=== PATIENT | female | born 1935 | race Caucasian/White ===

== ENCOUNTER 2017-03-10 12:51 | Inpatient (IN) | payer MEDICARE ==
[2017-03-10] MEDS ORDERED: Albuterol/Ipratropium 3.0-0.5 MG/3 ML Neb Soln NEB ONE (13:19)
[2017-03-10] MEDS ORDERED: methylPREDNISolone Sodium Succinate 125 MG/2 ML SDV IVPUSH ONE (13:19)
[2017-03-10] MEDS ORDERED: Sodium Chloride 0.9% 1,000 ML IV SCH (13:30)
--- NOTE | 2017-03-10 13:34 | EDM.PDOC ---
ED HPI GENERAL MEDICAL PROBLEM - General Chief Complaint: Respiratory Problem Stated Complaint: SOB Time Seen by Provider: 03/10/17 13:33 Source of Information: Reports: Patient - History of Present Illness INITIAL COMMENTS - FREE TEXT/NARRATIVE: HISTORY AND PHYSICAL: History of present illness: [Patient presents with shortness breath and hypoxic on initial exam 85% on room air she has significant smoking history in the remote past but has not smoked in 20 years no fever nausea vomiting chills sweats no chest pain headache dizziness or palpitation no bowel or urine symptoms ] Review of systems: As per history of present illness and below otherwise all systems reviewed and negative. Past medical history: As per history of present illness and as reviewed below otherwise noncontributory. Surgical history: As per history of present illness and as reviewed below otherwise noncontributory. Social history: No reported history of drug or alcohol abuse. Family history: As per history of present illness and as reviewed below otherwise noncontributory. Physical exam: HEENT: Atraumatic, normocephalic, pupils reactive, negative for conjunctival pallor or scleral icterus, mucous membranes moist, throat clear, neck supple, nontender, trachea midline. Lungs: Decreased breath sounds bilaterally, breath sounds equal bilaterally, chest nontender. Heart: S1S2, regular, negative for clicks, rubs, or JVD. Abdomen: Soft, nondistended, nontender. Negative for masses or hepatosplenomegaly. Negative for costovertebral tenderness. Pelvis: Stable nontender. Genitourinary: Deferred. Rectal: Deferred. Extremities: Atraumatic, negative for cords or calf pain. Neurovascular unremarkable. Neuro: Awake, alert, oriented. Cranial nerves II through XII unremarkable. Cerebellum unremarkable. Motor and sensory unremarkable throughout. Exam nonfocal. Diagnostics: [Lab as below EKG Chest 1 view Influenza ] Therapeutics: [DuoNeb Solu-Medrol Normal saline 1 25 mL per hour] Impression: [Hypoxia 80% room air] COPD exacerbation Definitive disposition and diagnosis as appropriate pending reevaluation and review of above. ED ROS GENERAL - Review of Systems Review Of Systems: ROS reveals no pertinent complaints other than HPI. ED EXAM, GENERAL - Physical Exam Exam: See Below Course - Vital Signs Last Recorded V/S: Last Vital Signs Temp 98.8 F 03/10/17 13:04 Pulse 96 03/10/17 13:04 Resp 22 H 03/10/17 13:04 BP 161/76 H 03/10/17 13:04 Pulse Ox 85 L 03/10/17 13:04 - Orders/Labs/Meds Orders: Active Orders 24 hr Category Date Time Status EKG Documentation Completion [RC] STAT Care 03/10/17 13:24 Active RT Aerosol Therapy [RC] ASDIRECTED Care 03/10/17 13:19 Active Chest 1V Frontal [CR] Stat Exams 03/10/17 13:19 Taken UA W/MICROSCOPIC [URIN] Stat Lab 03/10/17 14:25 Received Sodium Chloride 0.9% [Normal Saline] 1,000 ml Med 03/10/17 13:30 Active IV STAT Medication Orders Sodium Chloride (Normal Saline) 1,000 mls @ 125 mls/hr IV STAT ELAINE Last Admin: 03/10/17 13:35 Dose: 125 mls/hr Labs: Laboratory Tests 03/10/17 03/10/17 03/10/17 Range/Units 13:33 13:33 13:33 WBC 8.43 (4.0-11.0) K/uL RBC 4.39 (4.30-5.90) M/uL Hgb 14.8 (12.0-16.0) g/dL Hct 44.1 (36.0-46.0) % MCV 100.5 H (80.0-98.0) fL MCH 33.7 H (27.0-32.0) pg MCHC 33.6 (31.0-37.0) g/dL RDW Std Deviation 54.1 (28.0-62.0) fl RDW Coeff of Christina 15 (11.0-15.0) % Plt Count 345 (150-400) K/uL MPV 11.70 (7.40-12.00) fL Neut % (Auto) 59.6 (48.0-80.0) % Lymph % (Auto) 23.0 (16.0-40.0) % [place] % (Auto) 10.2 (0.0-15.0) % Eos % (Auto) 5.9 (0.0-7.0) % Baso % (Auto) 1.3 (0.0-1.5) % Neut # (Auto) 5.0 (1.4-5.7) K/uL Lymph # (Auto) 1.9 (0.6-2.4) K/uL [place] # (Auto) 0.9 H (0.0-0.8) K/uL Eos # (Auto) 0.5 (0.0-0.7) K/uL Baso # (Auto) 0.1 (0.0-0.1) K/uL Nucleated RBC % 0.0 /100WBC Nucleated RBCs # 0 K/uL INR 0.96 (0.86-1.11) Sodium 141 (136-146) mmol/L Potassium 4.0 (3.5-5.1) mmol/L Chloride 102 (98-110) mmol/L Carbon Dioxide 29 (21-31) mmol/L BUN 12 (6.0-23.0) mg/dL Creatinine 0.7 (0.6-1.5) mg/dL Est Cr Clr Drug Dosing TNP Estimated GFR (MDRD) > 60.0 ml/min Glucose 149 H (60-110) mg/dL Calcium 9.5 (8.8-10.8) mg/dL Total Bilirubin 0.5 (0.1-1.5) mg/dL AST 19 (5-40) IU/L ALT 15 (8-54) IU/L Alkaline Phosphatase 78 (40-150) Creatine Kinase 68 (9-236) IU/L CK-MB (CK-2) 1.8 (0-6.6) ng/ml Troponin I < 0.10 (0.0-0.29) NG/ML B-Natriuretic Peptide (<100) PG/ML Total Protein 8.0 (6.0-8.0) g/dL Albumin 4.2 (3.4-4.8) g/dL Globulin 3.8 H (2.0-3.5) g/dL Albumin/Globulin Ratio 1.1 L (1.3-2.8) 03/10/ Range/Units 13:33 WBC (4.0-11.0) K/uL RBC (4.30-5.90) M/uL Hgb (12.0-16.0) g/dL Hct (36.0-46.0) % MCV (80.0-98.0) fL MCH (27.0-32.0) pg MCHC (31.0-37.0) g/dL RDW Std Deviation (28.0-62.0) fl RDW Coeff of Christina (11.0-15.0) % Plt Count (150-400) K/uL MPV (7.40-12.00) fL Neut % (Auto) (48.0-80.0) % Lymph % (Auto) (16.0-40.0) % [place] % (Auto) (0.0-15.0) % Eos % (Auto) (0.0-7.0) % Baso % (Auto) (0.0-1.5) % Neut # (Auto) (1.4-5.7) K/uL Lymph # (Auto) (0.6-2.4) K/uL [place] # (Auto) (0.0-0.8) K/uL Eos # (Auto) (0.0-0.7) K/uL Baso # (Auto) (0.0-0.1) K/uL Nucleated RBC % /100WBC Nucleated RBCs # K/uL INR (0.86-1.11) Sodium (136-146) mmol/L Potassium (3.5-5.1) mmol/L Chloride (98-110) mmol/L Carbon Dioxide (21-31) mmol/L BUN (6.0-23.0) mg/dL Creatinine (0.6-1.5) mg/dL Est Cr Clr Drug Dosing Estimated GFR (MDRD) ml/min Glucose (60-110) mg/dL Calcium (8.8-10.8) mg/dL Total Bilirubin (0.1-1.5) mg/dL AST (5-40) IU/L ALT (8-54) IU/L Alkaline Phosphatase (40-150) Creatine Kinase (9-236) IU/L CK-MB (CK-2) (0-6.6) ng/ml Troponin I (0.0-0.29) NG/ML B-Natriuretic Peptide 121 H (<100) PG/ML Total Protein (6.0-8.0) g/dL Albumin (3.4-4.8) g/dL Globulin (2.0-3.5) g/dL Albumin/Globulin Ratio (1.3-2.8) Meds: Medications Generic Name Dose Route Start Last Admin Trade Name Katharina PRN Reason Stop Dose Admin Sodium Chloride 1,000 mls @ 125 mls/hr 03/10/17 13:30 03/10/17 13:35 Normal Saline IV 125 mls/hr STAT ELAINE Administration Discontinued Medications Generic Name Dose Route Start Last Admin Trade Name Katharina PRN Reason Stop Dose Admin Albuterol/Ipratropium 3 ml 03/10/17 13:19 03/10/17 13:33 Duoneb 3.0-0.5 Mg/3 Ml NEB 03/10/17 13:20 3 ml ONETIME ONE Administration Methylprednisolone Sodium Succinate 125 mg 03/10/17 13:19 03/10/17 13:36 Solu-Medrol IVPUSH 03/10/17 13:20 125 mg ONETIME ONE Administration Departure - Departure Time of Disposition: 14:50 Disposition: Refer to Observation Condition: Poor Clinical Impression: Hypoxia - Discharge Information Referrals: PCP,None [Primary Care Provider] - Forms: ED Department Discharge - My Orders Last 24 Hours: My Active Orders 03/10/17 13:19 RT Aerosol Therapy [RC] ASDIRECTED Chest 1V Frontal [CR] Stat 03/10/17 13:24 EKG Documentation Completion [RC] STAT 03/10/17 13:30 Sodium Chloride 0.9% [Normal Saline] 1,000 ml IV STAT 03/10/17 14:25 UA W/MICROSCOPIC [URIN] Stat - Assessment/Plan Last 24 Hours: My Active Orders 03/10/17 13:19 RT Aerosol Therapy [RC] ASDIRECTED Chest 1V Frontal [CR] Stat 03/10/17 13:24 EKG Documentation Completion [RC] STAT 03/10/17 13:30 Sodium Chloride 0.9% [Normal Saline] 1,000 ml IV STAT 03/10/17 14:25 UA W/MICROSCOPIC [URIN] Stat
[2017-03-10 14:12] LABS: CHLORIDE,CL 102 mmol/L (98-110); SODIUM,NA 141 mmol/L (136-146)
[2017-03-10] MEDS ORDERED: Albuterol 0.083% 2.5 MG/3 ML Neb Soln NEB PRN (15:42)
[2017-03-10] MEDS ORDERED: Acetaminophen 325 MG Tab PO PRN (15:42)
--- NOTE | 2017-03-10 15:55 | PCM.HP ---
H&P History of Present Illness - General Date of Service: 03/10/17 Admit Problem/Dx: Admission Diagnosis/Problem Admission Diagnosis/Problem Hypoxia Source of Information: Patient, Family (daughter at bedside) History Limitations: Reports: No Limitations - History of Present Illness Initial Comments - Free Text/Narative: This 81 year old female with pmh of HTN and previous smoker, quit 20 years ago, presented to the ED today with worsening SOB and cough. Her daughter reports 1 month ago she was seen in [place], [place] for similar symptoms and sent home with nebulizer and Prednisone x1 week. She didn't follow up after that but felt good. She reports last when symptoms started back up again. She confirms SOB at rest and on exertion, no orthopnea. No chest pain. Does confirm cough, with clear to light green phlegm. No fevers, sore throat or sinus congestion. No abdominal pain or urinary symptoms. She reports in [place] they also increased her Norvasc to 10 mg daily, but she didn't know why so she never increased it and has kept taking 5 mg daily. Denies CAD or DM. She Reports quitting smoking 20+ years ago, she drinks daily, 3-4 drinks of beer or vodka. She denies needing an eye hand packer in the morning and denies ever having withdrawl symptoms. No recreational drug use. In the ED lab work WNL, BNP slightly elevated 215, UA appears contaminated, and she is asymptomatic, will not treat. CXR unremarkable per radiologist, but hyperinflation noted upon my review of xray. Has no PCP, but would like to be set up with a provider here in [place]. - Related Data Allergies/Adverse Reactions: Allergies Allergy/AdvReac Type Severity Reaction Status Date / Time No Known Allergies Allergy Verified 03/10/17 15:56 Home Medications: Home Meds amLODIPine [Norvasc] 5 tab PO DAILY 03/10/17 [History] Past Medical History HEENT History: Reports: None Cardiovascular History: Reports: Hypertension. Denies: Afib, Blood Clots/VTE/ DVT, CAD, Heart Failure Respiratory History: Reports: None, SOB Gastrointestinal History: Reports: None. Denies: GERD, GI Bleed Genitourinary History: Reports: None. Denies: Acute Renal Failure, Chronic Renal Insuffiency MANAGER SHIP History: Reports: None Musculoskeletal History: Reports: None Neurological History: Reports: None. Denies: CVA, TIA Psychiatric History: Reports: Addiction Endocrine/Metabolic History: Reports: None. Denies: Diabetes, Type II, Hypothyroidism Hematologic History: Reports: None Immunologic History: Reports: None Oncologic (Cancer) History: Reports: None Dermatologic History: Reports: None - Past Surgical History HEENT Surgical History: Reports: None Cardiovascular Surgical History: Reports: None Respiratory Surgical History: Reports: None GI Surgical History: Reports: None Female Surgical History: Reports: None Endocrine Surgical History: Reports: None Neurological Surgical History: Reports: None Musculoskeletal Surgical History: Reports: None Oncologic Surgical History: Reports: None Dermatological Surgical History: Reports: None Social & Family History - Family History Family Medical History: Noncontributory - Tobacco Use Smoking Status *Q: Former Smoker Used Tobacco, but Quit: No - Caffeine Use Caffeine Use: Reports: None - Alcohol Use Alcohol Use History: Yes Days Per Week of Alcohol Use: 7 Number of Drinks Per Day: 4 Total Drinks Per Week: 28 Alcohol Use in Last Twelve Months: Yes Alcohol Use Frequency: Daily - Recreational Drug Use Recreational Drug Use: No - Living Situation & Occupation Living situation: Reports: with Family H&P Review of Systems - Review of Systems: Review Of Systems: See Below General: Reports: No Symptoms. Denies: Fever, Chills, Malaise, Weakness HEENT: Reports: No Symptoms. Denies: Headaches, Sinus Congestion, Sore Throat, Visual Changes Pulmonary: Reports: Shortness of Breath, Wheezing, Pleuritic Chest Pain (with coughing), Cough, Sputum Cardiovascular: Reports: No Symptoms. Denies: Chest Pain, Palpitations, Dyspnea on Exertion Gastrointestinal: Reports: No Symptoms. Denies: Abdominal Pain, Black Stool, Bloody Stool, Diarrhea, Decreased Appetite, Nausea, Vomiting Genitourinary: Reports: No Symptoms. Denies: Dysuria, Frequency, Burning, Pain , Urgency Skin: Reports: No Symptoms Psychiatric: Reports: No Symptoms. Denies: Confusion Neurological: Reports: No Symptoms Hematologic/Lymphatic: Reports: No Symptoms Immunologic: Reports: No Symptoms Exam - Exam Exam: See Below - Vital Signs Vital Signs: Last Vital Signs Temp 98.2 F 03/10/17 15:31 Pulse 94 03/10/17 15:31 Resp 20 03/10/17 15:31 BP 158/90 H 03/10/17 15:31 Pulse Ox 96 12/26/17 15:31 Weight: 64 kg - Exam Quality Assessment: Supplemental Oxygen, DVT Prophylaxis General: Alert, Oriented, Cooperative HEENT: Conjunctiva Clear, Mucosa Moist & [place], Posterior Pharynx Clear, Pupils Reactive Neck: Supple, Full Range of Motion. No: Lymphadenopathy Lungs: Decreased Breath Sounds, Wheezing (very tight sound and wheezing noted throughout lung nunes) Cardiovascular: Regular Rate, Regular Rhythm, Normal S1, Normal S2 GI/Abdominal Exam: Normal Bowel Sounds, Soft, Non-Tender, No Organomegaly, No Distention, No Abnormal Bruit, No Mass, Pelvis Stable Extremities: Normal Inspection, Normal Range of Motion, Non-Tender, No Pedal Edema, Normal Capillary Refill Neuro Extensive - Mental Status: Alert, Oriented x3, Normal Mood/Affect, Normal Cognition Neuro Extensive - Motor, Sensory, Reflexes: CN II-XII Intact, Normal Gait Psychiatric: Alert, Normal Affect, Normal Mood - Patient Data Result Diagrams: 03/10/17 13:33 03/10/17 13:33 *Q Meaningful Use (ADM) - VTE *Q VTE Criteria *Q: - Stroke *Q Stroke Criteria *Q: - AMI *Q AMI Criteria *Q: - Problem List (1) Hypoxia SNOMED Code(s): 147870722 ICD Code: R09.02 - HYPOXEMIA Status: Acute Current Visit: Yes (2) COPD exacerbation SNOMED Code(s): 314413467469782 ICD Code: J44.1 - CHRONIC OBSTRUCTIVE PULMONARY DISEASE W (ACUTE) EXACERBATION Status: Suspected Current Visit: Yes (3) HTN (hypertension) SNOMED Code(s): 67336649 ICD Code: I10 - ESSENTIAL (PRIMARY) HYPERTENSION Status: Chronic Current Visit: Yes Qualifiers: Hypertension type: essential hypertension Qualified Code(s): I10 - Essential (primary) hypertension (4) Alcohol use SNOMED Code(s): 212983783 ICD Code: Z78.9 - OTHER SPECIFIED HEALTH STATUS Status: Chronic Current Visit: Yes (5) History of tobacco use SNOMED Code(s): 4961403710654 ICD Code: Z87.891 - PERSONAL HISTORY OF NICOTINE DEPENDENCE Status: Chronic Current Visit: Yes Problem Details: quit 20+ years ago Problem List Initiated/Reviewed/Updated: Yes Orders Last 24hrs: Active Orders 24 hr Category Date Time Status Patient Status [ADT] Routine ADT 03/10/17 15:42 Ordered Intake and Output [RC] QSHIFT Care 03/10/17 15:43 Ordered Oxygen Therapy [RC] PRN Care 03/10/17 15:42 Ordered RT Aerosol Therapy [RC] ASDIRECTED Care 03/10/17 15:47 Ordered RT Post Treatment Assessment [RC] Click to Edit Care 03/10/17 15:47 Ordered RT Pre-Treatment Assessment [RC] Click to Edit Care 03/10/17 15:47 Ordered Up With Assistance [RC] ASDIRECTED Care 03/10/17 15:42 Ordered VTE/DVT Education [RC] PER UNIT ROUTINE Care 03/10/17 15:42 Ordered Vital Signs [RC] Q4H Care 03/10/17 15:42 Ordered Heart Healthy Diet [DIET] Diet 03/10/17 Dinner Ordered BASIC METABOLIC PANEL,BMP [CHEM] AM Lab 03/11/17 05:11 Ordered BASIC METABOLIC PANEL,BMP [CHEM] AM Lab 03/12/17 05:11 Ordered BASIC METABOLIC PANEL,BMP [CHEM] AM Lab 03/13/17 05:11 Ordered CBC WITH AUTO DIFF [HEME] AM Lab 03/11/17 05:11 Ordered CBC WITH AUTO DIFF [HEME] AM Lab 03/12/17 05:11 Ordered CBC WITH AUTO DIFF [HEME] AM Lab 03/13/17 05:11 Ordered Acetaminophen [Tylenol] Med 03/10/17 15:42 Ordered 650 mg PO Q4H PRN Albuterol [Proventil Neb Soln] Med 03/10/17 15:42 Ordered 2.5 mg NEB Q2H PRN Albuterol/Ipratropium [DuoNeb 3.0-0.5 MG/3 ML] Med 03/10/17 18:00 Ordered 3 ml NEB Q4HRRT Azithromycin [Zithromax] Med 03/10/17 15:45 Ordered 500 mg PO Q24H Fluticasone/Salmeterol [Advair Diskus 250-50] Med 03/10/17 21:00 Ordered 1 puff INH BID Heparin Sodium Med 03/10/17 21:00 Ordered 5,000 units SUBCUT Q12HR amLODIPine [Norvasc] Med 03/11/17 09:00 Ordered 1 tab PO DAILY methylPREDNISolone Sod Succ [Solu-MEDROL] Med 03/10/17 15:45 Ordered 125 mg IVPUSH Q6H Resuscitation Status Routine Resus Stat 03/10/17 15:42 Ordered Medication Orders Acetaminophen (Tylenol) 650 mg PO Q4H PRN PRN Reason: Pain Albuterol (Proventil Neb Soln) 2.5 mg NEB Q2H PRN PRN Reason: Shortness Of Breath/wheezing Albuterol/Ipratropium (Duoneb 3.0-0.5 Mg/3 Ml) 3 ml NEB Q4HRRT ELAINE Azithromycin (Zithromax) 500 mg PO Q24H ELAINE Heparin Sodium (Porcine) (Heparin Sodium) 5,000 units SUBCUT Q12HR ELAINE Methylprednisolone Sodium Succinate (Solu-Medrol) 125 mg IVPUSH Q6H ELAINE Fluticasone/Salmeterol (Advair Diskus 250-50) 1 puff INH BID ELAINE Assessment/Plan Comment:: This 81 year old female admitted with hypoxia and suspected COPD exacerbation 1. Suspected COPD exacerbation: Never had PFTs, but had extensive smoking history, quit 20 years ago. Reports in the last two months having one other episode such as this and treated with steroids and improved. Will give Solu- medrol 125 mg IV Q6hr due to severity of wheezing and tightness heard. Duonebs scheduled and albuterol PRN. Oxygen therapy to keep sats greater than 88%. Azithromycin 500 mg daily. I will also start Advair diskus. I encouraged her to follow up with PCP for PFTs as outpatient and she may benefit from Pulmonary rehabs as well. 2. HTN: Slightly elevated now, will monitor and continue Norvasc 5 mg daily. 3. Daily alcohol use: Denies ever having withdrawl symptoms. Will place on [facility] protocol to monitor. VTE prophylaxis: Heparin. Dispo: 2-4 days pending improvement.
[2017-03-10] MEDS: methylPREDNISolone Sodium Succinate 125 MG/2 ML SDV IVPUSH SCH ×2 (16:14→21:22)
[2017-03-10] MEDS: Azithromycin 250 MG Tab PO SCH (16:16)
[2017-03-10] MEDS ORDERED: LORazepam 0.5 MG Tab PO PRN (16:28)
[2017-03-10] MEDS: Albuterol/Ipratropium 3.0-0.5 MG/3 ML Neb Soln NEB SCH ×2 (17:07→21:27)
[2017-03-10] MEDS: Heparin Sodium 5,000 Units/ML Vial SUBCUT SCH (21:17)
[2017-03-10] MEDS: Fluticasone/Salmeterol 250-50 MCG Inhalation Powder 14/Diskus INH SCH (21:20)
[2017-03-11] MEDS: Albuterol/Ipratropium 3.0-0.5 MG/3 ML Neb Soln NEB SCH ×6 (02:19→21:13)
[2017-03-11] MEDS: methylPREDNISolone Sodium Succinate 125 MG/2 ML SDV IVPUSH SCH ×4 (03:45→21:11)
[2017-03-11 05:57] LABS: CHLORIDE,CL 105 mmol/L (98-110); SODIUM,NA 138 mmol/L (136-146)
[2017-03-11] MEDS: amLODIPine 5 MG Tab PO SCH ×2 (08:30→08:33)
[2017-03-11] MEDS: Heparin Sodium 5,000 Units/ML Vial SUBCUT SCH ×2 (08:33→21:13)
--- NOTE | 2017-03-11 10:09 | CR ---
EXAM DATE: 03/10/17 PATIENT'S AGE: 81 Patient: ALEX BOWEN Facility: [place], [place] Site . Site : [id number] Study: XRay Chest [id number]/26/2017 1:58:45 PM Ordering Physician: Doctor Hill Final Report: INDICATION: SOB TECHNIQUE: Chest 1 view. COMPARISON: None FINDINGS: Cardiovascular and mediastinum: Heart size and vasculature are normal in caliber and appearance. Mediastinum is within normal limits. Lungs and pleural space: Lungs are clear. No sign of infiltrate or mass. No sign of pleural effusion. No pneumothorax. Bones and soft tissues: No significant findings. IMPRESSION: Unremarkable chest. Dictated by: Noe Vines MD @ 03/10/2017 14:53:49 (Electronic Signature) Report Signed by Proxy. [facility] CAN[facility] CENTERMallory
[2017-03-11] MEDS: Fluticasone/Salmeterol 250-50 MCG Inhalation Powder 14/Diskus INH SCH ×2 (10:15→21:10)
--- NOTE | 2017-03-11 12:22 | PCM.PN ---
- General Info Date of Service: 03/11/17 Admission Dx/Problem (Free Text): Admission Diagnosis/Problem Admission Diagnosis/Problem Hypoxia Subjective Update: no overnight events. patient continues to remain asymptomatic - Review of Systems General: Reports: No Symptoms HEENT: Reports: No Symptoms Pulmonary: Reports: Shortness of Breath Cardiovascular: Reports: No Symptoms Gastrointestinal: Reports: No Symptoms Genitourinary: Reports: No Symptoms Musculoskeletal: Reports: No Symptoms Skin: Reports: No Symptoms Neurological: Reports: No Symptoms Psychiatric: Reports: No Symptoms - Patient Data Vitals - Most Recent: Last Vital Signs Temp 36.4 C 03/11/17 08:00 Pulse 98 03/11/17 08:00 Resp 18 03/11/17 08:00 BP 137/64 03/11/17 08:33 Pulse Ox 82 L 03/11/17 11:50 Weight - Most Recent: 64 kg I&O - Last 24 Hours: Intake & Output 03/10/17 03/11/17 03/11/17 22:59 06:59 14:59 Intake Total 327 500 Output Total 600 Balance 327 -100 Lab Results Last 24 Hours: Laboratory Results - last 24 hr 03/11/17 03/11/17 Range/Units 04:50 04:50 WBC 4.16 (4.0-11.0) K/uL RBC 4.21 L (4.30-5.90) M/uL Hgb 13.9 (12.0-16.0) g/dL Hct 41.8 (36.0-46.0) % MCV 99.3 H (80.0-98.0) fL MCH 33.0 H (27.0-32.0) pg MCHC 33.3 (31.0-37.0) g/dL RDW Std Deviation 53.3 (28.0-62.0) fl RDW Coeff of Christina 15 (11.0-15.0) % Plt Count 315 (150-400) K/uL MPV 12.30 H (7.40-12.00) fL Neut % (Auto) 84.4 H (48.0-80.0) % Lymph % (Auto) 15.4 L (16.0-40.0) % [place] % (Auto) 0.2 (0.0-15.0) % Eos % (Auto) 0.0 (0.0-7.0) % Baso % (Auto) 0.0 (0.0-1.5) % Neut # (Auto) 3.5 (1.4-5.7) K/uL Lymph # (Auto) 0.6 (0.6-2.4) K/uL [place] # (Auto) 0.0 (0.0-0.8) K/uL Eos # (Auto) 0.0 (0.0-0.7) K/uL Baso # (Auto) 0.0 (0.0-0.1) K/uL Nucleated RBC % 0.0 /100WBC Nucleated RBCs # 0 K/uL Sodium 138 (136-146) mmol/L Potassium 4.5 (3.5-5.1) mmol/L Chloride 105 (98-110) mmol/L Carbon Dioxide 25 (21-31) mmol/L BUN 16 (6.0-23.0) mg/dL Creatinine 0.6 (0.6-1.5) mg/dL Est Cr Clr Drug Dosing 73.74 mL/min Estimated GFR (MDRD) > 60.0 ml/min Glucose 164 H (60-110) mg/dL Calcium 9.2 (8.8-10.8) mg/dL Med Orders - Current: Current Medications Acetaminophen (Tylenol) 650 mg PO Q4H PRN PRN Reason: Pain Albuterol (Proventil Neb Soln) 2.5 mg NEB Q2H PRN PRN Reason: Shortness Of Breath/wheezing Albuterol/Ipratropium (Duoneb 3.0-0.5 Mg/3 Ml) 3 ml NEB Q4HRRT ELAINE Last Admin: 03/11/17 10:15 Dose: 3 ml Amlodipine Besylate (Norvasc) 5 mg PO DAILY ELAINE Last Admin: 03/11/17 08:33 Dose: 5 mg Azithromycin (Zithromax) 500 mg PO Q24H ELAINE Last Admin: 03/10/17 16:16 Dose: 500 mg Heparin Sodium (Porcine) (Heparin Sodium) 5,000 units SUBCUT Q12HR ELAINE Last Admin: 03/11/17 08:33 Dose: 5,000 units Lorazepam (Ativan) 0 mg PO Q4H PRN; Protocol PRN Reason: CIWAA Methylprednisolone Sodium Succinate (Solu-Medrol) 125 mg IVPUSH Q6H [facility] Last Admin: 03/11/17 10:33 Dose: 125 mg Fluticasone/Salmeterol (Advair Diskus 250-50) 1 puff INH BID [facility] Last Admin: 03/11/17 10:15 Dose: 1 puff Discontinued Medications Albuterol/Ipratropium (Duoneb 3.0-0.5 Mg/3 Ml) 3 ml NEB ONETIME ONE Stop: 03/10/17 13:20 Last Admin: 03/10/17 13:33 Dose: 3 ml Sodium Chloride (Normal Saline) 1,000 mls @ 125 mls/hr IV STAT [facility] Last Admin: 03/10/17 13:35 Dose: 125 mls/hr Methylprednisolone Sodium Succinate (Solu-Medrol) 125 mg IVPUSH ONETIME ONE Stop: 03/10/17 13:20 Last Admin: 03/10/17 13:36 Dose: 125 mg - Exam General: Alert, Oriented, No Acute Distress HEENT: Pupils Equal, Pupils Reactive Neck: Supple Lungs: Normal Respiratory Effort, Decreased Breath Sounds, Crackles Cardiovascular: Regular Rate, Regular Rhythm GI/Abdominal Exam: Normal Bowel Sounds, Soft, Non-Tender Extremities: Normal Capillary Refill Peripheral Pulses: 2+: Radial (L), Radial (R) Skin: Intact Neurological: No New Focal Deficit - Plan Plan:: This 81 year old female with COPD admitted for hypoxia COPD exacerbation: Azithromycin 500 mg daily. Advair diskus Hypoxia, secondary to COPD exacerbation: wean O2 HTN: continue Norvasc 5 mg daily. Alcohol Use Disorder: Denies ever having withdrawl symptoms. Will place on [facility] protocol to monitor. VTE prophylaxis: Heparin dispo: 1-2 days
--- NOTE | 2017-03-11 13:08 | PCM.PN ---
- General Info Date of Service: 03/11/17 Admission Dx/Problem (Free Text): COPD exacerbation Subjective Update: Feels breathing has been improving but still needing oxygen supplementation especially when up and walking. Some dry cough. No pain. Eating and eliminating without difficulty. Functional Status: Reports: Pain Controlled - Review of Systems General: Reports: Fatigue. Denies: Fever, Weakness, Malaise, Chills HEENT: Denies: Headaches, Visual Changes Pulmonary: Reports: Shortness of Breath, Cough. Denies: Pleuritic Chest Pain, Sputum, Hemoptysis Cardiovascular: Denies: Chest Pain, Palpitations, Edema Gastrointestinal: Denies: Abdominal Pain, Constipation Genitourinary: Denies: Dysuria, Hematuria Musculoskeletal: Denies: Neck Pain, Leg Pain Skin: Denies: Cyanosis Neurological: Denies: Confusion, Dizziness, Headache Psychiatric: Denies: Confusion - Patient Data Vitals - Most Recent: Last Vital Signs Temp 97.6 F 03/11/17 08:00 Pulse 98 03/11/17 08:00 Resp 18 03/11/17 08:00 BP 137/64 03/11/17 08:00 Pulse Ox 82 L 03/11/17 11:50 Weight - Most Recent: 64 kg I&O - Last 24 Hours: Intake & Output 03/10/17 03/11/17 03/11/17 22:59 06:59 14:59 Intake Total 327 500 Output Total 600 Balance 327 -100 Lab Results Last 24 Hours: Laboratory Results - last 24 hr 03/11/17 03/11/17 Range/Units 04:50 04:50 WBC 4.16 (4.0-11.0) K/uL RBC 4.21 L (4.30-5.90) M/uL Hgb 13.9 (12.0-16.0) g/dL Hct 41.8 (36.0-46.0) % MCV 99.3 H (80.0-98.0) fL MCH 33.0 H (27.0-32.0) pg MCHC 33.3 (31.0-37.0) g/dL RDW Std Deviation 53.3 (28.0-62.0) fl RDW Coeff of Christina 15 (11.0-15.0) % Plt Count 315 (150-400) K/uL MPV 12.30 H (7.40-12.00) fL Neut % (Auto) 84.4 H (48.0-80.0) % Lymph % (Auto) 15.4 L (16.0-40.0) % [place] % (Auto) 0.2 (0.0-15.0) % Eos % (Auto) 0.0 (0.0-7.0) % Baso % (Auto) 0.0 (0.0-1.5) % Neut # (Auto) 3.5 (1.4-5.7) K/uL Lymph # (Auto) 0.6 (0.6-2.4) K/uL [place] # (Auto) 0.0 (0.0-0.8) K/uL Eos # (Auto) 0.0 (0.0-0.7) K/uL Baso # (Auto) 0.0 (0.0-0.1) K/uL Nucleated RBC % 0.0 /100WBC Nucleated RBCs # 0 K/uL Sodium 138 (136-146) mmol/L Potassium 4.5 (3.5-5.1) mmol/L Chloride 105 (98-110) mmol/L Carbon Dioxide 25 (21-31) mmol/L BUN 16 (6.0-23.0) mg/dL Creatinine 0.6 (0.6-1.5) mg/dL Est Cr Clr Drug Dosing 73.74 mL/min Estimated GFR (MDRD) > 60.0 ml/min Glucose 164 H (60-110) mg/dL Calcium 9.2 (8.8-10.8) mg/dL Med Orders - Current: Current Medications Acetaminophen (Tylenol) 650 mg PO Q4H PRN PRN Reason: Pain Albuterol (Proventil Neb Soln) 2.5 mg NEB Q2H PRN PRN Reason: Shortness Of Breath/wheezing Albuterol/Ipratropium (Duoneb 3.0-0.5 Mg/3 Ml) 3 ml NEB Q4HRRT [facility] Last Admin: 03/11/17 10:15 Dose: 3 ml Amlodipine Besylate (Norvasc) 5 mg PO DAILY [facility] Last Admin: 03/11/17 08:30 Dose: Not Given Azithromycin (Zithromax) 500 mg PO Q24H [facility] Last Admin: 03/10/17 16:16 Dose: 500 mg Heparin Sodium (Porcine) (Heparin Sodium) 5,000 units SUBCUT Q12HR [facility] Last Admin: 03/11/17 08:33 Dose: 5,000 units Lorazepam (Ativan) 0 mg PO Q4H PRN; Protocol PRN Reason: CIWAA Methylprednisolone Sodium Succinate (Solu-Medrol) 125 mg IVPUSH Q6H [facility] Last Admin: 03/11/17 10:33 Dose: 125 mg Fluticasone/Salmeterol (Advair Diskus 250-50) 1 puff INH BID [facility] Last Admin: 03/11/17 10:15 Dose: 1 puff Discontinued Medications Albuterol/Ipratropium (Duoneb 3.0-0.5 Mg/3 Ml) 3 ml NEB ONETIME ONE Stop: 03/10/17 13:20 Last Admin: 03/10/17 13:33 Dose: 3 ml Sodium Chloride (Normal Saline) 1,000 mls @ 125 mls/hr IV STAT [facility] Last Admin: 03/10/17 13:35 Dose: 125 mls/hr Methylprednisolone Sodium Succinate (Solu-Medrol) 125 mg IVPUSH ONETIME ONE Stop: 03/10/17 13:20 Last Admin: 03/10/17 13:36 Dose: 125 mg - Exam Quality Assessment: Supplemental Oxygen, DVT Prophylaxis General: Alert, Oriented, Cooperative, No Acute Distress HEENT: Pupils Equal, Pupils Reactive, EOMI, Mucous Membr. Moist/[place] Neck: Supple, Trachea Midline, No JVD Lungs: Normal Respiratory Effort, Decreased Breath Sounds, Wheezing Cardiovascular: Regular Rate, Regular Rhythm GI/Abdominal Exam: Normal Bowel Sounds, Soft, Non-Tender, No Organomegaly, No Distention Back Exam: Normal Inspection, Full Range of Motion Extremities: Normal Inspection, Non-Tender, No Pedal Edema, Normal Capillary Refill Peripheral Pulses: 2+: Radial (L), Radial (R), Posterior Tibial (L), Posterior Tibial (R), Dorsalis Pedis (L), Dorsalis Pedis (R) Skin: Warm, Dry, Intact Neurological: No New Focal Deficit Psy/Mental Status: Alert, Normal Affect, Normal Mood - Problem List & Annotations (1) Hypoxia SNOMED Code(s): 073930345 Code(s): R09.02 - HYPOXEMIA Status: Acute Priority: High Current Visit : Yes (2) Alcohol use SNOMED Code(s): 320488673 Code(s): Z78.9 - OTHER SPECIFIED HEALTH STATUS Status: Chronic Priority: Low Current Visit: Yes (3) HTN (hypertension) SNOMED Code(s): 20370948 Code(s): I10 - ESSENTIAL (PRIMARY) HYPERTENSION Status: Chronic Priority : Low Current Visit: Yes Qualifiers: Hypertension type: essential hypertension Qualified Code(s): I10 - Essential (primary) hypertension (4) History of tobacco use SNOMED Code(s): 6147965384874 Code(s): Z87.891 - PERSONAL HISTORY OF NICOTINE DEPENDENCE Status: Chronic Priority: Medium Current Visit: Yes Annotation/Comment:: quit 20+ years ago (5) COPD exacerbation SNOMED Code(s): 732185266578912 Code(s): J44.1 - CHRONIC OBSTRUCTIVE PULMONARY DISEASE W (ACUTE) EXACERBATION Status: Suspected Priority: High Current Visit: Yes - Problem List Review Problem List Initiated/Reviewed/Updated: Yes - My Orders Last 24 Hours: My Active Orders 03/10/17 19:29 Code Status [Resuscitation Status] Routine 03/11/17 11:45 Communication Order [RC] DAILY - Plan Plan:: 81 year old female admitted 03/11/17 for hypoxia and suspected COPD exacerbation 1. Suspected COPD exacerbation: Extensive smoking history, quit 20 years ago. No previous PFT's. Cont. Solu-medrol 125 mg IV Q6hr due to severity of wheezing and tightness. Cont. Duonebs scheduled and albuterol PRN. Oxygen therapy to keep sats greater than 88%. Cont. Azithromycin 500 mg daily. Started Advair diskus yesterday and will need follow up with a PCP preferrable here in [place] for PFTs as outpatient and may benefit from Pulmonary rehab. 2. HTN: Stable continue Norvasc 5 mg daily. 3. Daily alcohol use: Denies ever having withdrawl symptoms. Cont. CIWAA protocol to monitor. VTE prophylaxis: Heparin. Dispo: 1-2 days pending improvement.
[2017-03-11] MEDS: Azithromycin 250 MG Tab PO SCH (15:46)
[2017-03-12] MEDS: Albuterol/Ipratropium 3.0-0.5 MG/3 ML Neb Soln NEB SCH ×3 (03:25→09:43)
[2017-03-12] MEDS: methylPREDNISolone Sodium Succinate 125 MG/2 ML SDV IVPUSH SCH ×2 (03:25→09:15)
[2017-03-12 06:10] LABS: CHLORIDE,CL 105 mmol/L (98-110); SODIUM,NA 142 mmol/L (136-146)
[2017-03-12] MEDS: Heparin Sodium 5,000 Units/ML Vial SUBCUT SCH (09:15)
[2017-03-12] MEDS: amLODIPine 5 MG Tab PO SCH (09:16)
[2017-03-12] MEDS: Fluticasone/Salmeterol 250-50 MCG Inhalation Powder 14/Diskus INH SCH (09:17)
--- NOTE | 2017-03-12 11:51 | PCM.DCSUM1 ---
Discharge Summary - Hospital Course Free Text/Narrative:: 81 year old female with history of HTN and Alcohol Use Disorder admitted for hypoxia secondary to suspected COPD exacerbation. She had been having progressively worsening sob over the past 2-3 months until it worsened to the point from She does not have documented COPD but she is an ex-smoker with 40 pack year smoking history but quit 20 years ago. She was treated with Azithromycin and Solumedrol. Her hypoxia resolved 03/12/17 and she was ambulatory, tolerating po intake, afebrile with stable vitals and denied pain. She was discharged home on Prednisone and Azithromycin. She was given duoneb refill for the nebulizer she was recently prescribed for her. She was also prescribed albuterol inhaler. She was also prescribed ventolin inhaler. f/u with new pcp arranged for her. 1. Hypoxia, likely COPD exacerbation, improved -discharged on Azithromycin, Prednisone and Ventolin -out-patient PFT after 4-6 weeks -f/u with PCP 2. HTN -continue Norvasc 5 mg daily. 3. Alcohol Use Disorder -drinks 2-3 servings about 4 days per week -no withdrawal symptoms - Discharge Data Discharge Date: 03/12/17 Discharge Disposition: Home, Self-Care 01 Condition: Good - Patient Instructions Diet: Regular Diet as Tolerated, No Alcoholic Beverages Notify Provider of: Fever, Nausea and/or Vomiting - Discharge Plan Prescriptions/Med Rec: Albuterol Sulfate [Ventolin Hfa] 2 puff IH Q6HR 14 Days #1 inhaler Albuterol/Ipratropium [DuoNeb 3.0-0.5 MG/3 ML] 3 ml NEB Q6HRRT PRN 30 Days #360 ml PRN Reason: sob Azithromycin [IJD: Azithromycin] 250 mg PO DAILY 3 Days #3 tab predniSONE [Prednisone] 2 tab PO DAILY 5 Days #10 tablet Home Medications: Home Meds amLODIPine [Norvasc] 5 tab PO DAILY 03/10/17 [History] Albuterol Sulfate [Ventolin Hfa] 2 puff IH Q6HR 14 Days #1 inhaler 03/12/17 [Rx] Albuterol/Ipratropium [DuoNeb 3.0-0.5 MG/3 ML] 3 ml NEB Q6HRRT PRN 30 Days #360 ml 03/12/17 [Rx] Azithromycin [IJD: Azithromycin] 250 mg PO DAILY 3 Days #3 tab 03/12/17 [Rx] predniSONE [Prednisone] 2 tab PO DAILY 5 Days #10 tablet 03/12/17 [Rx] Patient Handouts: Chronic Obstructive Pulmonary Disease Exacerbation, Easy-to- Read, Shortness of Breath, [id number] Referrals: Anthony Starkey MD [Physician] - 03/19/17 11:30 am - Discharge Summary/Plan Comment DC Time >30 min.: No - General Info Functional Status: Reports: Pain Controlled, Tolerating Diet, Ambulating, Urinating - Review of Systems General: Reports: No Symptoms HEENT: Reports: No Symptoms Pulmonary: Reports: No Symptoms Cardiovascular: Reports: No Symptoms Gastrointestinal: Reports: No Symptoms Genitourinary: Reports: No Symptoms Musculoskeletal: Reports: No Symptoms Skin: Reports: No Symptoms Neurological: Reports: No Symptoms Psychiatric: Reports: No Symptoms - Patient Data Vitals - Most Recent: Last Vital Signs Temp 37.1 C 03/12/17 08:00 Pulse 108 H 03/12/17 08:00 Resp 20 03/12/17 08:00 BP 127/65 03/12/17 09:16 Pulse Ox 91 L 03/12/17 09:32 Weight - Most Recent: 64 kg I&O - Last 24 hours: Intake & Output 03/11/17 03/12/17 03/12/17 22:59 06:59 14:59 Intake Total 1418 300 Output Total 700 350 Balance 718 -50 Lab Results - Last 24 hrs: Laboratory Results - last 24 hr 03/12/17 03/12/17 Range/Units 04:56 04:56 WBC 10.83 (4.0-11.0) K/uL RBC 4.30 (4.30-5.90) M/uL Hgb 14.1 (12.0-16.0) g/dL Hct 42.3 (36.0-46.0) % MCV 98.4 H (80.0-98.0) fL MCH 32.8 H (27.0-32.0) pg MCHC 33.3 (31.0-37.0) g/dL RDW Std Deviation 54.1 (28.0-62.0) fl RDW Coeff of [place] 15 (11.0-15.0) % Plt Count 365 (150-400) K/uL MPV 12.00 (7.40-12.00) fL Neut % (Auto) 90.6 H (48.0-80.0) % Lymph % (Auto) 5.7 L (16.0-40.0) % [place] % (Auto) 3.6 (0.0-15.0) % Eos % (Auto) 0.0 (0.0-7.0) % Baso % (Auto) 0.1 (0.0-1.5) % Neut # (Auto) 9.8 H (1.4-5.7) K/uL Lymph # (Auto) 0.6 (0.6-2.4) K/uL [place] # (Auto) 0.4 (0.0-0.8) K/uL Eos # (Auto) 0.0 (0.0-0.7) K/uL Baso # (Auto) 0.0 (0.0-0.1) K/uL Nucleated RBC % 0.0 /100WBC Nucleated RBCs # 0 K/uL Sodium 142 (136-146) mmol/L Potassium 4.6 (3.5-5.1) mmol/L Chloride 105 (98-110) mmol/L Carbon Dioxide 27 (21-31) mmol/L BUN 24 H (6.0-23.0) mg/dL Creatinine 0.7 (0.6-1.5) mg/dL Est Cr Clr Drug Dosing 63.20 mL/min Estimated GFR (MDRD) > 60.0 ml/min Glucose 148 H (60-110) mg/dL Calcium 9.4 (8.8-10.8) mg/dL Med Orders - Current: Current Medications Acetaminophen (Tylenol) 650 mg PO Q4H PRN PRN Reason: Pain Albuterol (Proventil Neb Soln) 2.5 mg NEB Q2H PRN PRN Reason: Shortness Of Breath/wheezing Albuterol/Ipratropium (Duoneb 3.0-0.5 Mg/3 Ml) 3 ml NEB Q4HRRT [facility] Last Admin: 03/12/17 09:43 Dose: 3 ml Amlodipine Besylate (Norvasc) 5 mg PO DAILY [facility] Last Admin: 03/12/17 09:16 Dose: 5 mg Azithromycin (Zithromax) 500 mg PO Q24H [facility] Last Admin: 03/11/17 15:46 Dose: 500 mg Heparin Sodium (Porcine) (Heparin Sodium) 5,000 units SUBCUT Q12HR [facility] Last Admin: 03/12/17 09:15 Dose: 5,000 units Lorazepam (Ativan) 0 mg PO Q4H PRN; Protocol PRN Reason: CIWAA Methylprednisolone Sodium Succinate (Solu-Medrol) 125 mg IVPUSH Q6H [facility] Last Admin: 03/12/17 09:15 Dose: 125 mg Fluticasone/Salmeterol (Advair Diskus 250-50) 1 puff INH BID [facility] Last Admin: 03/12/17 09:17 Dose: 1 puff Discontinued Medications Albuterol/Ipratropium (Duoneb 3.0-0.5 Mg/3 Ml) 3 ml NEB ONETIME ONE Stop: 03/10/17 13:20 Last Admin: 03/10/17 13:33 Dose: 3 ml Sodium Chloride (Normal Saline) 1,000 mls @ 125 mls/hr IV STAT [facility] Last Admin: 03/10/17 13:35 Dose: 125 mls/hr Methylprednisolone Sodium Succinate (Solu-Medrol) 125 mg IVPUSH ONETIME ONE Stop: 03/10/17 13:20 Last Admin: 03/10/17 13:36 Dose: 125 mg - Exam General: Reports: Alert, Oriented, Cooperative, No Acute Distress Neck: Reports: Supple Lungs: Reports: Normal Respiratory Effort, Decreased Breath Sounds, Crackles Cardiovascular: Reports: Regular Rate, Regular Rhythm GI/Abdominal Exam: Soft, Non-Tender Extremities: Normal Capillary Refill *Q Meaningful Use (DIS) - VTE *Q VTE Criteria *Q: - Stroke *Q Stroke Criteria *Q: - AMI *Q AMI Criteria *Q:
== END 2017-03-12 13:10 | disposition home or self-care (01) | DRG 192 ==
LOC: MW.ED 12:51 → MW.MS 15:03 → UNDOADMIN 15:03 → MW.MS 15:42 → UNDODISIN 03-12 13:10
PROVIDERS: ADMIT Family Medicine; ATTEND Family Medicine
DX: J44.1 Chronic obstructive pulmonary disease with (acute) exacerbation (principal); R09.02 Hypoxemia; I10 Essential (primary) hypertension; Z87.891 Personal history of nicotine dependence; Z79.899 Other long term (current) drug therapy; Z78.9 Other specified health status
CPT/HCPCS: 36415; 71010; 80053; 81001; 82550; 82553; 83880; 84484; 85025; 85610; 87804 ×2; 94640; 96361; 96374; 99285; J2930; J7040; 80048; 93005; 99284; A9270-GY; J1644